=== PATIENT | female | born 1995 | race Caucasian/White ===

== ENCOUNTER 2018-10-18 15:35 | Outpatient (CLI) | payer OTHER ==
[~2018-10-18] VITALS: Ht 162.6 cm; Wt 97.7 kg
[~2018-10-18 15:35] MED LIST: IBUP-1222 PO
[2018-10-18 15:52] VITALS: BP 112/73
[2018-10-18 16:27] LABS: MICROSCOPIC AUTO
[2018-10-18] MEDS ORDERED: PREN1TAB60 PO (16:34)
[2018-10-18 16:53] LABS: AMPHETAMINE SCREEN, URINE Negative (Negative); BARBITURATE SCREEN, URINE Negative (Negative); BENZODIAZEPINE SCREEN, URINE Negative (Negative); CANNABINOID SCREEN, URINE Negative (Negative); COCAINE SCREEN, URINE Negative (Negative); METHADONE SCREEN, URINE Negative (Negative); OPIATE SCREEN, URINE Negative (Negative)
== END 2018-10-18 19:30 | disposition home or self-care (01) ==
LOC: LDOP 15:35
PROVIDERS: ATTEND Obstetrics & Gynecology Female Pelvic Medicine and Reconstructive Surgery
DX: O26.893 Other specified pregnancy related conditions, third trimester (principal); O32.1XX0 Maternal care for breech presentation, not applicable or unspecified; M54.5 Low back pain; Z3A.41 41 weeks gestation of pregnancy
CPT/HCPCS: 59025; 76819; 80307; 81001; 87081; 99211; G0463

== ENCOUNTER 2018-10-20 20:11 | Inpatient (IN) | payer OTHER ==
[~2018-10-20] VITALS: Ht 162.6 cm; Wt 100.0 kg
[~2018-10-20 20:11] MED LIST changes: +PREN1TAB60 PO
[2018-10-20 21:37] LABS: MICROSCOPIC NOT IND
[2018-10-20] MEDS ORDERED: OXYTOCIN 30U/ 0.9% NaCL 500ML 500 ML ONE (21:41)
[2018-10-20] MEDS ORDERED: NEWBORN KIT ONE (21:41)
[2018-10-20] MEDS ORDERED: LACTATED RINGERS 1,000 ML IV SCH (21:41)
[2018-10-20] MEDS ORDERED: D5%-LACTATED RINGERS 1,000 ML IV SCH (21:41)
[2018-10-20] MEDS ORDERED: OXYTOCIN 30U/ 0.9% NaCL 500ML 500 ML IV ONE (21:41)
[2018-10-20] MEDS ORDERED: OXYTOCIN 30U/ 0.9% NaCL 500ML 500 ML IV PRN (21:41)
[2018-10-20] MEDS ORDERED: LIDOCAINE 1%, 20ML ONE (21:41)
[2018-10-20] MEDS ORDERED: MISOPROSTOL 200 MCG TABLET ONE (21:41)
[2018-10-20 21:50] LABS: AMPHETAMINE SCREEN, URINE Negative (Negative); BARBITURATE SCREEN, URINE Negative (Negative); BENZODIAZEPINE SCREEN, URINE Negative (Negative); CANNABINOID SCREEN, URINE Negative (Negative); COCAINE SCREEN, URINE Negative (Negative); METHADONE SCREEN, URINE Negative (Negative); OPIATE SCREEN, URINE Negative (Negative)
[2018-10-20] MEDS ORDERED: FENTANYL PF 100 MCG/2ML IV PRN (22:00)
[2018-10-20] MEDS ORDERED: METOCLOPRAMIDE 5 MG/ML, 2ML IVPush PRN (22:00)
[2018-10-20] MEDS ORDERED: CALCIUM CARBONATE 500 MG TAB.CHEW PO PRN (22:00)
[2018-10-20] MEDS ORDERED: ONDANSETRON 2MG/ML, 2ML IVPush PRN (22:00)
[2018-10-20] MEDS ORDERED: SODIUM CITRATE/CITRIC ACID 15 ML UDC PO PRN (22:00)
[2018-10-20] MEDS ORDERED: TERBUTALINE 1 MG/ML, 1ML IVPush PRN (22:00)
[2018-10-20] MEDS ORDERED: FENTANYL PF 100 MCG/2ML IVPush PRN (22:00)
[2018-10-20 22:07] LABS: BASOPHILS # (AUTO) 0.05 x10^3/uL (0-0.1); BASOPHILS % (AUTO) 1 % (0-1); EOSINOPHILS % (AUTO) 1 % (1-7); LYMPHOCYTES # (AUTO) 2.29 x10^3/uL (1-3.4); LYMPHOCYTES % (AUTO) 28 % (22-44); MD NO; MEAN CORPUSCULAR HGB CONC 33.8 g/dL (32.4-35.8); MEAN CORPUSCULAR VOLUME 88.9 fL (80-100); MEAN PLATELET VOLUME 9.5 fL (7.4-10.4); MONOCYTES # (AUTO) 0.38 x10^3/uL (0.2-0.8); MONOCYTES % (AUTO) 5 % (2-9); NEUTROPHILS # (AUTO) 5.45 x10^3/uL (1.8-6.8); NEUTROPHILS % (AUTO) 66 % (42-75); PLATELET COUNT 199 x10^3/uL (130-400); RED BLOOD COUNT 4.15 x10^6/uL (3.82-5.3); RED CELL DISTRIBUTION WIDTH 14.3 % (9.6-15.2)
[2018-10-20] MEDS ORDERED: FENTANYL/BUPIV./NS/PF 250 ML EPIDCONT SCH (23:26)
[2018-10-20] MEDS ORDERED: FENTANYL PF 500 MCG, BUPIVACAINE/PF 0.5%, 30ML 62.5 ML in SODIUM CHLORIDE 0.9% 177.5 ML EPIDCONT SCH (23:45)
[2018-10-21] MEDS ORDERED: BUPIVACAINE 0.25% ONE (00:14)
[2018-10-21] MEDS ORDERED: LACTATED RINGERS 1,000 ML IV SCH (00:36)
[2018-10-21] MEDS ORDERED: FENTANYL/BUPIV./NS/PF 250 ML EPIDCONT SCH (00:36)
[2018-10-21] MEDS ORDERED: ONDANSETRON 2MG/ML, 2ML IVPush PRN (01:00)
[2018-10-21] MEDS ORDERED: DIPHENHYDRAMINE 50 MG/ML, 1ML IVPush PRN (01:00)
[2018-10-21] MEDS ORDERED: EPHEDRINE 50 MG/ML, 1ML IVPush PRN (01:00)
[2018-10-21] MEDS ORDERED: NALOXONE 0.4 MG/ML, 1ML IVPush PRN (01:00)
[2018-10-21] MEDS ORDERED: LACTATED RINGERS 1,000 ML IVBOLUS PRN (01:00)
[2018-10-21] MEDS: OXYTOCIN 30U/ 0.9% NaCL 500ML 500 ML IV SCH ×3 (03:10→23:10)
[2018-10-21] MEDS ORDERED: METHYLERGONOVINE 0.2 MG/ML IM PRN (03:30)
[2018-10-21] MEDS ORDERED: MISOPROSTOL 200 MCG TABLET PR PRN (03:30)
[2018-10-21] MEDS ORDERED: HYDROcodone/APAP 5/325 TABLET PO PRN ×2 (03:30)
[2018-10-21] MEDS ORDERED: CALCIUM CARBONATE 500 MG TAB.CHEW PO PRN (03:30)
[2018-10-21] MEDS ORDERED: ACETAMINOPHEN 325 MG TABLET PO PRN (03:30)
[2018-10-21] MEDS ORDERED: ONDANSETRON 2MG/ML, 2ML IV PRN (03:30)
[2018-10-21] MEDS ORDERED: IBUPROFEN 600 MG TABLET ONE (05:04)
[2018-10-21] MEDS: IBUPROFEN 600 MG TABLET PO PRN ×3 (05:05→20:22)
[2018-10-21 05:35] VITALS: BP 109/72
[2018-10-21 08:45] VITALS: BP 100/68
[2018-10-21] MEDS: DOCUSATE 100 MG CAPSULE PO PRN ×2 (08:47→20:21)
[2018-10-21] MEDS: PRENATAL VIT/IRON/FA 1 EACH TABLET PO SCH (08:47)
[2018-10-21 12:04] LABS: BASOPHILS # (AUTO) 0.01 x10^3/uL (0-0.1); BASOPHILS % (AUTO) 0 % (0-1); EOSINOPHILS # (AUTO) 0.09 x10^3/uL (0-0.4); EOSINOPHILS % (AUTO) 1 % (1-7); LYMPHOCYTES # (AUTO) 1.82 x10^3/uL (1-3.4); LYMPHOCYTES % (AUTO) 20 % (22-44); MD NO; MEAN CORPUSCULAR HEMOGLOBIN 29.4 pg (27.0-34.8); MEAN CORPUSCULAR HGB CONC 33.3 g/dL (32.4-35.8); MEAN CORPUSCULAR VOLUME 88.4 fL (80-100); MEAN PLATELET VOLUME 9.6 fL (7.4-10.4); MONOCYTES # (AUTO) 0.46 x10^3/uL (0.2-0.8); MONOCYTES % (AUTO) 5 % (2-9); NEUTROPHILS # (AUTO) 6.55 x10^3/uL (1.8-6.8); NEUTROPHILS % (AUTO) 73 % (42-75); PLATELET COUNT 159 x10^3/uL (130-400); RED BLOOD COUNT 3.72 x10^6/uL (3.82-5.3); RED CELL DISTRIBUTION WIDTH 14.3 % (9.6-15.2)
[2018-10-21 12:30] VITALS: BP 114/76
[2018-10-21 16:12] VITALS: BP 111/75
[2018-10-21] MEDS ORDERED: DIPHTHERIA-TETANUS ADULT 0.5ML IM-VACC ONE (16:30)
[2018-10-21] MEDS ORDERED: MEASLES,MUMPS&RUBELLA VACC/PF 0.5 ML SQ-VACC ONE ×2 (16:30→16:35)
[2018-10-21] MEDS ORDERED: DIPH,PERTUSS(ACELL),TET VAC/PF NC IM-VACC ONE ×2 (16:34→18:00)
[2018-10-21 20:30] VITALS: BP 117/76
[2018-10-22 01:00] VITALS: BP 102/67
[2018-10-22] MEDS: IBUPROFEN 600 MG TABLET PO PRN (06:02)
[2018-10-22 08:05] VITALS: BP 108/72
[2018-10-22] MEDS: PRENATAL VIT/IRON/FA 1 EACH TABLET PO SCH (09:00)
[2018-10-22] MEDS: OXYTOCIN 30U/ 0.9% NaCL 500ML 500 ML IV SCH (09:10)
== END 2018-10-22 17:30 | disposition home or self-care (01) | DRG 807 ==
LOC: LDOP 20:11 → LDIP 21:43 → 2NW 10-21 05:51
PROVIDERS: ADMIT Obstetrics & Gynecology; ATTEND Obstetrics & Gynecology
PROC: 10D07Z6 Extraction of Products of Conception, Vacuum, Via Natural or Artificial Opening (ICD-10-PCS; principal; 2018-10-21)
PROC: 0KQM0ZZ Repair Perineum Muscle, Open Approach (ICD-10-PCS; 2018-10-21)
PROC: 10907ZC Drainage of Amniotic Fluid, Therapeutic from Products of Conception, Via Natural or Artificial Opening (ICD-10-PCS; 2018-10-21)
PROC: 3E0R3BZ Introduction of Anesthetic Agent into Spinal Canal, Percutaneous Approach (ICD-10-PCS; 2018-10-21)
PROC: 00HU33Z Insertion of Infusion Device into Spinal Canal, Percutaneous Approach (ICD-10-PCS; 2018-10-21)
DX: O48.0 Post-term pregnancy (principal); Z37.0 Single live birth; O99.214 Obesity complicating childbirth; E66.9 Obesity, unspecified; O70.1 Second degree perineal laceration during delivery; Z3A.41 41 weeks gestation of pregnancy; Z91.19 Patient's noncompliance with other medical treatment and regimen
CPT/HCPCS: 36415; 80307; 81003; 82803; 85025; 86850; 86900; 87086; 88307; 90715; G0378; J3010; J3490; J2590; J7050; J7120

== ENCOUNTER 2020-03-25 20:34 | Emergency (ER) | payer SELFPAY ==
[~2020-03-25] VITALS: Ht 162.6 cm; Wt 93.3 kg
[2020-03-25] MEDS ORDERED: SODIUM CHLORIDE 0.9% 1,000 ML IV ONE (21:59)
[2020-03-25] MEDS ORDERED: SODIUM CHLORIDE 0.9% 1,000ML IVBOLUS ONE (22:00)
[2020-03-25] MEDS ORDERED: CEFTRIAXONE 250 MG IM ONE (22:00)
[2020-03-25] MEDS ORDERED: AZITHROMYCIN 500 MG TABLET PO ONE (22:00)
[2020-03-25] MEDS ORDERED: ACETAMINOPHEN 500 MG TABLET PO ONE (22:00)
[2020-03-25] MEDS ORDERED: SODIUM CHLORIDE FLUSH 10ML SYR IVF ONE (22:00)
[2020-03-25] MEDS ORDERED: AZITHROMYCIN 250 MG TABLET ONE (22:28)
[2020-03-25] MEDS ORDERED: ACETAMINOPHEN 500 MG TABLET ONE (22:28)
[2020-03-25] MEDS ORDERED: CEFTRIAXONE 250 MG ONE (22:28)
[2020-03-25 23:00] LABS: MICROSCOPIC AUTO
[2020-03-25 23:30] LABS: CLUE CELLS NONE SEEN (NONE SEEN); WET PREP WBCS MANY (FEW)
[2020-03-25 23:45] VITALS: BP 128/72
== END 2020-03-26 01:08 | disposition home or self-care (01) ==
LOC: ED 03-26 00:45
DX: N30.00 Acute cystitis without hematuria (principal); Z20.828 Contact with and (suspected) exposure to other viral communicable diseases; J02.8 Acute pharyngitis due to other specified organisms; N89.8 Other specified noninflammatory disorders of vagina; R00.0 Tachycardia, unspecified; B97.89 Other viral agents as the cause of diseases classified elsewhere; F17.200 Nicotine dependence, unspecified, uncomplicated
CPT/HCPCS: 36415; 81001; 81025; 87081; 87086; 87210; 87491; 87591; 87635; 87808; 87880; 93005; 96372; 99284; J0696; J7030